=== PATIENT | female | born 1980 | race American Indian/Alaskan Native ===

== ENCOUNTER 2019-08-08 12:09 | Emergency (ER) | payer SELFPAY ==
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
[2019-08-08 12:24] VITALS: BP 104/65; PULSE 80
[2019-08-08 12:54] LABS: ANION GAP 10.9; CHLORIDE,CL 109 mmol/L (101-111); SODIUM,NA 137 mmol/L (135-145)
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
== END 2019-08-08 15:31 | disposition home or self-care (01) ==
LOC: DL.ED 12:09
DX: N30.00 Acute cystitis without hematuria (principal); Z88.0 Allergy status to penicillin; Z88.5 Allergy status to narcotic agent; Z88.8 Allergy status to other drugs, medicaments and biological substances; Y04.0XXA Assault by unarmed brawl or fight, initial encounter
CPT/HCPCS: 36415; 71111; 73590-LT; 73610-LT; 80053; 80305-QW; 81001; 81025; 85025; 87086; 87088; 87186; 99284-25; G0480

== ENCOUNTER 2025-01-12 15:29 | Emergency (ER) | payer MEDICAID ==
[2025-01-12] MEDS ORDERED: Naloxone 2 MG/2 ML Syringe IVPUSH PRN (17:24)
[2025-01-12 17:42] LABS: BASOPHILS PERCENT AUTO 0.2 % (0.0-1.0); EOSINOPHILS PERCENT AUTO 1.3 % (1.0-3.0); HEMATOCRIT 36.8 % (37.0-47.0); HEMOGLOBIN 12.1 g/dL (12.0-16.0); LYMPHOCYTES PERCENT AUTO 17.4 % (20.5-50.1); MEAN CORPUSCULAR HGB CONC 32.9 g/dL (33.0-35.0); MEAN CORPUSCULAR VOLUME 91.1 fL (80-100); MONOCYTES PERCENT AUTO 8.1 % (2-8); PLATELET COUNT,PLT 212 10^3/uL (150-450); RED BLOOD CELL COUNT 4.04 10^6/uL (4.2-5.4); WHITE BLOOD CELL COUNT,WBC 11.8 10^3/uL (5.0-10.0)
[2025-01-12] MEDS: HYDROmorphone 1 MG/ML Syringe IVPUSH ONE ×2 (17:47→22:00)
[2025-01-12 17:57] LABS: ANION GAP 10.3 mEq/L (7-13); CALCIUM 9.4 mg/dL (8.5-10.1); CREATININE 0.66 mg/dL (0.55-1.02); EST CRCL DRUG DOSING (CG) 89.04 mL/min; POTASSIUM,K 4.3 mmol/L (3.5-5.1)
[2025-01-12] MEDS: Iopamidol 612 MG/ML 100 ML Bottle IVPUSH ONE (18:15)
[2025-01-12 18:47] VITALS: BP 104/65; PULSE 65
[2025-01-12] MEDS: Lidocaine 1% with EPINEPHrine 1:100,000 20 ML MDV INJECT ONE (19:30)
[2025-01-12] MEDS: Take Home: metroNIDAZOLE 250 MG Tab, 8 Tab Pack PO ONE (22:46)
[2025-01-12] MEDS: metroNIDAZOLE 250 MG Tab PO ONE (22:46)
[2025-01-12] MEDS: Take Home: Sulfamethoxazole/Trimethoprim 800-160 MG Tab, 6 Tab Pack PO ONE (22:46)
[2025-01-12] MEDS: Sulfamethoxazole/Trimethoprim 800-160 MG Tab PO ONE (22:46)
[2025-01-12] MEDS: Take Home: Acetaminophen/oxyCODONE 325-5 MG, 5 Tab Pack PO ONE (22:51)
== END 2025-01-12 23:10 | disposition home or self-care (01) ==
LOC: DL.ED 15:29
DX: N75.1 Abscess of Bartholin's gland (principal); Z88.0 Allergy status to penicillin; Z88.5 Allergy status to narcotic agent; Z88.6 Allergy status to analgesic agent; Z88.8 Allergy status to other drugs, medicaments and biological substances
CPT/HCPCS: 36415; 56420; 72193; 80048; 85025; 96374; 96376; 99284; A9270; J1171; J2004; Q9967